=== PATIENT | male | born 2000 | race Caucasian/White ===

== ENCOUNTER 2020-05-28 16:06 | Emergency (ER) | payer OTHER ==
[~2020-05-28] VITALS: Ht 182.9 cm; Wt 133.8 kg
[2020-05-28] MEDS ORDERED: CLARITIN10 MG PO (16:21)
[2020-05-28] MEDS ORDERED: AMOXICILLIN 50500 MG PO (16:46)
[2020-05-28 17:12] VITALS: BP 148/107
== END 2020-05-28 17:14 | disposition home or self-care (01) ==
LOC: M.ERS 16:06
DX: J03.90 Acute tonsillitis, unspecified (principal); J45.909 Unspecified asthma, uncomplicated; G47.30 Sleep apnea, unspecified; Z88.8 Allergy status to other drugs, medicaments and biological substances